=== PATIENT | female | born 1975 ===

== ENCOUNTER 2021-05-09 15:08 | Emergency (ER) | payer OTHER ==
[~2021-05-09] VITALS: Ht 160 cm; Wt 62.6 kg
--- NOTE | 2021-05-09 15:30 | NUR ---
DR Sellers at the bedside for MSE.
[2021-05-09] MEDS ORDERED: IBUPROFEN 600 MG TABLET ONE (15:53)
[2021-05-09] MEDS ORDERED: IBUP-1957 PO (15:57)
[2021-05-09] MEDS ORDERED: IBUPROFEN 600 MG TABLET PO ONE (16:00)
[2021-05-09 16:02] VITALS: BP 106/66
--- NOTE | 2021-05-09 16:02 | NUR ---
Patient discharged to home in stable condition. Written and verbal after care instructions given. Patient verbalizes understanding of instructions. Stressed follow up or return to ER for worsening s/s.
== END 2021-05-09 16:08 | disposition home or self-care (01) ==
LOC: ER 15:14
DX: M70.842 Other soft tissue disorders related to use, overuse and pressure, left hand (principal); Y93.89 Activity, other specified
CPT/HCPCS: 73110; A4663